=== PATIENT | male | born 1970 | race Caucasian/White ===

== ENCOUNTER → 2020-01-03 10:45 | Outpatient (CLI) | payer OTHER, SELFPAY ==
[2020-01-03 11:43] LABS: Influenza A - CEPHEID Flu A NEGATIVE (NEGATIVE); Influenza B - CEPHEID Flu B NEGATIVE (NEGATIVE)
[2020-01-04 02:12] LABS: COVID19 Sendout Not Detected (Not Detect)
== END ==
PROVIDERS: Referring Provider Family Medicine; Visit Provider Family Medicine
DX: Z03.818 Encounter for observation for suspected exposure to other biological agents ruled out (principal)
CPT/HCPCS: 87502; 87635